=== PATIENT | male | born 1985 | race African-American/Black ===

== ENCOUNTER 2018-07-30 01:29 | Observation (INO) | payer OTHER ==
[~2018-07-30] VITALS: Ht 185.4 cm; Wt 114.3 kg
[~2018-07-30 01:29] MED LIST: ACET325T33 PO; CIPR7.5D BOTH EARS; IBUP800T48 PO; SULF1TAB31 PO
[2018-07-30] MEDS ORDERED: ONDANSETRON 4 MG INJ IV ONE (02:12)
[2018-07-30] MEDS ORDERED: morphine 4 MG/ML VIAL IV ONE (02:12)
--- NOTE | 2018-07-30 04:46 | ERD ---
ER Documentation Chief Complaint Chief Complaint chest pain since yesterday HPI This is a very pleasant 33-year-old gentleman who presents to the emergency room with chest pain. Describes left-sided chest pain that is pressure-like, intermittent with associated numbness and tingling to his left upper extremity. Additionally has some back pain in the middle of his back that is mild that started earlier today. Patient does have a family history of cardiac disease. He denies any exertional symptoms, no pleuritic pain and no significant shortness of breath. The pain is moderate currently. ROS All systems reviewed and are negative except as per history of present illness. Medications Home Meds Discontinued Scripts Ciprofloxacin Hcl/Dexameth (Ciprodex Otic Suspension) 7.5 Ml Drops.susp, 4 DROP BOTH EARS BID for 7 Days, EA Prov:PASILABAN,KLAR F 07/04/17 Ibuprofen* (Motrin*) 800 Mg Tab, 800 MG PO Q6H PRN for PAIN AND OR ELEVATED TEMP, #30 TAB Prov:PASILABAN,KLAR F 07/04/17 Acetaminophen* (Tylenol*) 325 Mg Tablet, 2 TAB PO Q6 PRN for PAIN AND OR ELEVATED TEMP, #20 TAB Prov:PASILABAN,KLAR F 07/04/17 Sulfamethoxazole/Trimethoprim* (Bactrim Ds* Tablet) 1 Each Tablet, 1 TAB PO BID, #14 TAB Prov:PASILABAN,KLAR F 07/04/17 Allergies Allergies: Coded Allergies: No Known Drug Allergies (Verified Allergy, Unknown, 07/30/18) PMhx/Soc Medical and Surgical Hx: pt denies Medical Hx, pt denies Surgical Hx History of Surgery: No Anesthesia Reaction: No Hx Neurological Disorder: No Hx Alcohol Use: No Hx Substance Use: No Hx Tobacco Use: No Smoking Status: Never smoker FmHx Family History: coronary disease; No diabetes Physical Exam Vitals Vital Signs Date Temp Pulse Resp B/P (MAP) Pulse Ox O2 O2 Flow FiO2 Time Delivery Rate 07/30/18 97.8 82 19 135/82 97 Room Air 05:15 (99) 07/30/18 97.8 97 18 137/72 97 Room Air 02:01 (93) 07/30/18 97.8 98 18 156/86 97 01:34 (109) Physical Exam General: Well developed, well nourished, no acute distress Head: Normocephalic, atraumatic. Eyes: Pupils equally reactive, EOM intact ENT: Moist mucous membranes Neck: Supple, no lymphadenopathy Respiratory: Lungs clear bilaterally, no distress Cardiovascular: RRR, no murmurs, rubs, or gallops Abdominal: Soft, non-tender, non-distended, no peritoneal signs : Deferred MSK: No edema, no unilateral swelling, 5/5 strength, no pulse deficits Neurologic: Alert and oriented, moving all extremities, normal speech, no focal weakness, no cerebellar signs Skin: No rash Psych: Normal mood Result Diagram: 07/30/1815707/30/18157 Results 24 hrs Laboratory Tests Test 07/30/18 01:58 White Blood Count 7.3 10^3/ul Red Blood Count 5.25 10^6/ul Hemoglobin 16.0 g/dl Hematocrit 46.6 % Mean Corpuscular Volume 88.8 fl Mean Corpuscular Hemoglobin 30.5 pg Mean Corpuscular Hemoglobin Concent 34.3 g/dl Red Cell Distribution Width 12.8 % Platelet Count 311 10^3/UL Mean Platelet Volume 9.7 fl Immature Granulocytes % 0.300 % Neutrophils % 61.3 % Lymphocytes % 27.5 % Monocytes % 8.4 % Eosinophils % 2.1 % Basophils % 0.4 % Nucleated Red Blood Cells % 0.0 /100WBC Immature Granulocytes # 0.020 10^3/ul Neutrophils # 4.5 10^3/ul Lymphocytes # 2.0 10^3/ul Monocytes # 0.6 10^3/ul Eosinophils # 0.2 10^3/ul Basophils # 0.0 10^3/ul Nucleated Red Blood Cells # 0.0 10^3/ul Prothrombin Time 12.1 Sec Prothrombin Time Ratio 0.9 INR International Normalized Ratio 0.89 Activated Partial Thromboplast Time 28.1 Sec Sodium Level 141 mmol/L Potassium Level 4.1 mmol/L Chloride Level 103 mmol/L Carbon Dioxide Level 25 mmol/L Anion Gap 13 Blood Urea Nitrogen 19 mg/dl Creatinine 0.93 mg/dl Est Glomerular Filtrat Rate mL/min > 60 mL/min Glucose Level 105 mg/dl Calcium Level 9.7 mg/dl Total Bilirubin 0.7 mg/dl Direct Bilirubin 0.00 mg/dl Indirect Bilirubin 0.7 mg/dl Aspartate Amino Transf (AST/SGOT) 39 IU/L Alanine Aminotransferase (ALT/SGPT) 41 IU/L Alkaline Phosphatase 74 IU/L Troponin I < 0.012 ng/ml Total Protein 8.6 g/dl Albumin 4.7 g/dl Globulin 3.90 g/dl Albumin/Globulin Ratio 1.20 Current Medications Medications Dose Sig/Ojao Start Time Status Last (Trade) Ordered Route PRN Stop Time Admin Dose Reason Admin Morphine 4 mg ONCE ONCE 07/30/18 DC 07/30/18 Sulfate IV 02:12 07/30/18 02:40 (morphine) 02:13 Ondansetron 4 mg ONCE ONCE 07/30/18 DC 07/30/18 HCl (Zofran IV 02:12 07/30/18 02:43 Inj) 02:13 Aspirin 324 mg ONCE ONCE 07/30/18 UNV (Aspirin) PO 06:00 07/30/18 06:01 Ondansetron 4 mg ER BRIDGE 07/30/18 HCl (Zofran PRN IV 06:00 07/31/18 Inj) NAUSEA/VOMITI 05:59 NG 650 mg ER BRIDGE 07/30/18 Acetaminophen PRN PO 06:00 07/31/18 (Tylenol .MILD PAIN 05:59 Tab) 1-3 OR TEMP Procedures/MDM EKG, MONITORS, & DIAGNOSTIC IMAGING: EKG: I reviewed and interpreted a 12-lead EKG. Rhythm: Normal sinus rhythm ST Changes: ST segment depression in the inferior leads T waves: TWI deep in inferior leads Impression: Abnormal EKG Repeat EKG: EKG: I reviewed and interpreted a 12-lead EKG. Rhythm: Normal sinus rhythm ST Changes: ST segment depression in the inferior leads T waves: TWI deep in inferior leads Impression: Abnormal EKG Chest x-ray: I reviewed and interpreted a 1 view of the chest Mediastinum: No enlargement Cardiac silhouette: No cardiomegaly Airspace: Clear lung coello bilaterally without evidence of pneumothorax Bones: No evidence of fracture CTA IMPRESSION: 1. No evidence of a pulmonary embolism or thoracic aortic dissection. 2. Moderate retained fluid and debris in the stomach. RPTAT: HRSR PROCEDURES: None LAB INTERPRETATION: Negative troponin MEDICAL DECISION MAKING: The patient's history, physical exam and clinical presentation is concerning for possible cardiogenic etiology and acute coronary syndrome. Based on the patient's clinical exam and history and risk factors, I have a much lower clinical concern for pulmonary embolism, acute aortic dissection, pneumothorax, pneumonia, cardiac tamponade HEART Score: 4 MACE Rate: 16.6% Shared Decision Making: We had a conversation regarding risk stratification, MACE rate, and the risks, benefits, alternatives of disposition planning options. Disposition planning: Admit ER COURSE: * CT of the chest obtained to rule out dissection given back component. Negative. Aspirin provided. Chest pain improved. Given the patient's abnormal EKG I would recommend hospitalization. Patient agreeable. CONSULTATION: None DISPOSITION PLAN: My telemetry admit telemetry admission for management of chest pain to rule out acute coronary syndrome, serial enzymes, risk stratification and consideration of provocative testing CONSULTATION: Accepting care team and consultations: I discussed the current laboratory data, diagnostic imaging and emergency care provided. Admitting team: Dr. Arnold Admitting team indication: Insurance directed Departure Diagnosis: Primary Impression: Chest pain Chest pain type: unspecified Qualified Codes: R07.9 - Chest pain, unspecified Additional Impression: Abnormal EKG Condition: Stable JACQUE CHACON MD Jul 30, 2018 04:46
[2018-07-30] MEDS ORDERED: ASPIRIN 81 MG TAB PO ONE (06:00)
[2018-07-30] MEDS ORDERED: ACETAMINOPHEN 325 MG TAB PO PRN ×2 (06:00→06:30)
[2018-07-30] MEDS ORDERED: ONDANSETRON 4 MG INJ IV PRN ×2 (06:00→06:30)
[2018-07-30] MEDS ORDERED: SOD CHLORIDE 0.45% 1,000 ML IV SCH (06:06)
[2018-07-30] MEDS ORDERED: SOD CHLORIDE 0.9% 100 ML ONE (06:06)
[2018-07-30] MEDS ORDERED: IOHEXOL 300MG/ML 150 ML BTL ONE (06:06)
[2018-07-30] MEDS ORDERED: hydrALAzine 20 MG INJ IV PRN (06:30)
[2018-07-30] MEDS ORDERED: morphine 2 MG INJ IV PRN (06:30)
[2018-07-30] MEDS ORDERED: HYDROCODONE/APAP (5/325) TAB PO PRN (06:30)
[2018-07-30] MEDS ORDERED: DOCUSATE SODIUM 100 MG CAP PO PRN (06:30)
[2018-07-30] MEDS ORDERED: LORAZEPAM 2 MG INJ IV PRN (06:30)
[2018-07-30] MEDS ORDERED: NACL 0.9% 3 ML SYG IV SCH (06:30)
[2018-07-30] MEDS ORDERED: ALBUTEROL/IPRATROPIUM (NEB) 3 ML AMP HHN PRN (06:30)
[2018-07-30] MEDS ORDERED: NITROGLYCERIN (SL) 0.4 MG TAB SL PRN (06:30)
[2018-07-30] MEDS ORDERED: MAGNESIUM HYDROXIDE 30ML CUP PO PRN (06:30)
--- NOTE | 2018-07-30 06:33 | HP ---
Date/Time of Note Date/Time of Note DATE: 07/30/18 TIME: 06:33 Assessment/Plan VTE Prophylaxis SCD applied (from Nsg): No SCD contraindicated: other Pharmacological prophylaxis: heparin Assessment/Plan Hospital Course Assessment and plan: 33-year-old gentleman with no significant past medical history who presents to the emergency room with chest pain with positive family history of heart disease. 1. Chest pain: Again rule out ACS versus musculoskeletal source of pain -We will trend troponins every 6 hours x2 more the first troponin is been negative. -Given the positive family history of heart disease and possible EKG changes will go ahead and obtain cardiology consult check 2D echocardiogram -Continue aspirin, morphine, oxygen, nitroglycerin, follow-up TSH A1c lipid panel 2. DVT prophylaxis: Heparin subcu Result Diagram: 07/30/18 0158 07/30/18 0158 Results 24hrs Laboratory Tests Test 07/30/18 01:58 White Blood Count 7.3 Red Blood Count 5.25 Hemoglobin 16.0 Hematocrit 46.6 Mean Corpuscular Volume 88.8 Mean Corpuscular Hemoglobin 30.5 Mean Corpuscular Hemoglobin Concent 34.3 Red Cell Distribution Width 12.8 Platelet Count 311 Mean Platelet Volume 9.7 Immature Granulocytes % 0.300 Neutrophils % 61.3 Lymphocytes % 27.5 Monocytes % 8.4 Eosinophils % 2.1 Basophils % 0.4 Nucleated Red Blood Cells % 0.0 Immature Granulocytes # 0.020 Neutrophils # 4.5 Lymphocytes # 2.0 Monocytes # 0.6 Eosinophils # 0.2 Basophils # 0.0 Nucleated Red Blood Cells # 0.0 Prothrombin Time 12.1 Prothrombin Time Ratio 0.9 INR International Normalized Ratio 0.89 Activated Partial Thromboplast Time 28.1 Sodium Level 141 Potassium Level 4.1 Chloride Level 103 Carbon Dioxide Level 25 Anion Gap 13 Blood Urea Nitrogen 19 Creatinine 0.93 Est Glomerular Filtrat Rate mL/min > 60 Glucose Level 105 Calcium Level 9.7 Total Bilirubin 0.7 Direct Bilirubin 0.00 Indirect Bilirubin 0.7 Aspartate Amino Transf (AST/SGOT) 39 Alanine Aminotransferase (ALT/SGPT) 41 Alkaline Phosphatase 74 Troponin I < 0.012 Total Protein 8.6 H Albumin 4.7 Globulin 3.90 H Albumin/Globulin Ratio 1.20 HPI/ROS Admit Date/Time Admit Date/Time Hx of Present Illness 33-year-old gentleman with no significant past medical history who presents to the emergency room with chest pain. Patient described the pain as left-sided chest pain that is pressure-like, intermittent with associated numbness and tingling to his left upper extremity. Additionally has some back pain in the middle of his back that is mild that started earlier today. Patient had some nausea and dizziness symptoms but no loss of consciousness no upper or lower GI bleeding, diarrhea constipation, fever chills, no shortness of breath. Patient does have a family history of cardiac disease. PMH/Family/Social Past Medical History Medications Current Medications Ondansetron HCl (Zofran Inj) 4 mg ER BRIDGE PRN IV NAUSEA/VOMITING; Start 07/30/18 at 06:00; Stop 07/31/18 at 05:59 Acetaminophen (Tylenol Tab) 650 mg ER BRIDGE PRN PO .MILD PAIN 1-3 OR TEMP; Start 07/30/18 at 06:00; Stop 07/31/18 at 05:59 IV Flush (NS 3 ml) 3 ml PER PROTOCOL IV ; Start 07/30/18 at 06:30 Ondansetron HCl (Zofran Inj) 4 mg Q6H PRN IV NAUSEA/VOMITING; Start 07/30/18 at 06:30 Acetaminophen (Tylenol Tab) 650 mg Q6H PRN PO .PAIN 1-3 OR TEMP; Start 07/30/18 at 06:30 Acetaminophen/ Hydrocodone Bitart ([place] (5/325)) 1 tab Q6H PRN PO .MOD PAIN 4- 6; Start 07/30/18 at 06:30 Morphine Sulfate (morphine) 2 mg Q4H PRN IV .SEVERE PAIN 7-10; Start 07/30/18 at 06:30 Docusate Sodium (Colace) 100 mg Q12H PRN PO .CONSTIPATION; Start 07/30/18 at 06:30 Magnesium Hydroxide (Milk Of Mag) 30 ml DAILY PRN PO .CONSTIPATION; Start 07/30/18 at 06:30 Heparin Sodium (Porcine) (Heparin (5000 Units/1ml)) 5,000 unit Q12 SC ; Start 07/30/18 at 09:00 Sodium Chloride 1,000 ml @ 75 mls/hr [id number] IV ; Start 07/30/18 at 06:06 Lorazepam (Ativan) 0.5 mg Q6H PRN IV ANXIETY; Start 07/30/18 at 06:30 Albuterol/ Ipratropium (Duoneb) 3 ml Q4H RESP THERAPY PRN HHN SHORTNESS OF ROXANA TH; Start 07/30/18 at 06:30 Hydralazine HCl (Apresoline) 10 mg Q6H PRN IV ELEVATED BLOOD PRESSURE; Start 07/30/18 at 06:30 Clonidine (Catapres) 0.1 mg Q6H PRN PO ELEVATED BLOOD PRESSURE; Start 07/30/18 at 06:30 Nitroglycerin (Nitroglycerin (Sl Tab) 0.4 Mg) 1 tab Q5M PRN SL ANGINA; Start 07/30/18 at 06:30 Aspirin (Ecotrin) 325 mg DAILY PO ; Start 07/30/18 at 09:00 Coded Allergies: No Known Drug Allergies (Verified Allergy, Unknown, 07/30/18) Past Surgical History Past Surgical Hx: no surgical history Family History Significant Family History: other (Father has pacemaker and possible heart disease) Social History Alcohol Use: none Smoking Status: Never smoker Drug Use: none Exam/Review of Systems Vital Signs Vitals Vital Signs Date Temp Pulse Resp B/P (MAP) Pulse Ox O2 O2 Flow FiO2 Time Delivery Rate 07/30/18 88 14 128/77 100 Nasal 06:27 (94) Cannula 07/30/18 97.8 05:15 Exam Exam GENERAL: lying in bed, no acute distress HEENT: Pupils equal, round, and reactive to light. EOMI. NECK: Supple LUNGS: Clear to auscultation bilaterally, no rales, wheezes or rhonchi. HEART: Regular rate and rhythm, no murmurs, clicks, rubs or gallops. ABDOMEN: Soft, NT, non-distended. Positive bowel sounds in all four quadrants. No rebound or guarding. EXTREMITIES: No lower extremity edema bilaterally NEURO: No focal deficits ADELAIDE SMALL Jul 30, 2018 06:33
--- NOTE | 2018-07-30 07:51 | CONS ---
Assessment/Plan Assessment/Plan Hospital Course (Demo Recall) Chest pain/dizziness/EKG abnormality: Based on EKG and family history (though father denies HCM, he had likely frequent PVCs from either HCM or dilated cardiomyopathy and received an ICD) I suspect he may have hypertrophic cardiomyopathy. Highly doubt obstructive CAD. Probably mostly non-obstructive as he has been active and asymptomatic with heavy exertion and he does not have a murmur with valsalva. Alternately he may have dilated cardiomyopathy which I doubt based on normal heart size by CXR. -echo -trend trops -continue ASA for now until more information is obtained -start metoprolol succ 25mg daily Consultation Date/Type/Reason Admit Date/Time Date of Consultation: Jul 30, 2018 Type of Consult Cardiology Reason for Consultation Chest pain, abnormal EKG Requesting Provider: ADELAIDE SMALL Date/Time of Note DATE: 07/30/18 TIME: 07:41 Hx of Present Illness 33 yo M with no past medical history who presented with dizziness, back/chest pain. He was at work when he started to feel chest pressure, left arm numbness, mid back pain, and dizziness. He has not had this before so it concerned him. No prior similar episodes. No syncope. He was active in the past including playing basketball and wrestling without any symptoms including chest pain or dizziness. His father has a heart condition. He lives in the [facility] and I was able to speak with him. He had an ICD placed recently for "8000 extra heart beats" but he does not think he has HCM. The father's brother has an enlarged heart and needs a valve procedure and possible ICD as well. per hPI Past Medical History per HPI Home Meds Discontinued Scripts Ciprofloxacin Hcl/Dexameth (Ciprodex Otic Suspension) 7.5 Ml Drops.susp, 4 DROP BOTH EARS BID for 7 Days, EA Prov:PASILABAN,KLAR F 07/04/17 Ibuprofen* (Motrin*) 800 Mg Tab, 800 MG PO Q6H PRN for PAIN AND OR ELEVATED TEMP, #30 TAB Prov:PASILABAN,KLAR F 07/04/17 Acetaminophen* (Tylenol*) 325 Mg Tablet, 2 TAB PO Q6 PRN for PAIN AND OR ELEVATED TEMP, #20 TAB Prov:PASILABAN,KLAR F 07/04/17 Sulfamethoxazole/Trimethoprim* (Bactrim Ds* Tablet) 1 Each Tablet, 1 TAB PO BID, #14 TAB Prov:ELMIRA BARRERA 07/04/17 Medications Current Medications Ondansetron HCl (Zofran Inj) 4 mg ER BRIDGE PRN IV NAUSEA/VOMITING; Start 07/30/18 at 06:00; Stop 07/31/18 at 05:59 Acetaminophen (Tylenol Tab) 650 mg ER BRIDGE PRN PO .MILD PAIN 1-3 OR TEMP; Start 07/30/18 at 06:00; Stop 07/31/18 at 05:59 IV Flush (NS 3 ml) 3 ml PER PROTOCOL IV ; Start 07/30/18 at 06:30 Ondansetron HCl (Zofran Inj) 4 mg Q6H PRN IV NAUSEA/VOMITING; Start 07/30/18 at 06:30 Acetaminophen (Tylenol Tab) 650 mg Q6H PRN PO .PAIN 1-3 OR TEMP; Start 07/30/18 at 06:30 Acetaminophen/ Hydrocodone Bitart ([place] (5/325)) 1 tab Q6H PRN PO .MOD PAIN 4- 6; Start 07/30/18 at 06:30 Morphine Sulfate (morphine) 2 mg Q4H PRN IV .SEVERE PAIN 7-10; Start 07/30/18 at 06:30 Docusate Sodium (Colace) 100 mg Q12H PRN PO .CONSTIPATION; Start 07/30/18 at 06:30 Magnesium Hydroxide (Milk Of Mag) 30 ml DAILY PRN PO .CONSTIPATION; Start 07/30/18 at 06:30 Heparin Sodium (Porcine) (Heparin (5000 Units/1ml)) 5,000 unit Q12 SC ; Start 07/30/18 at 09:00 Sodium Chloride 1,000 ml @ 75 mls/hr [id number] IV ; Start 07/30/18 at 06:06 Lorazepam (Ativan) 0.5 mg Q6H PRN IV ANXIETY; Start 07/30/18 at 06:30 Albuterol/ Ipratropium (Duoneb) 3 ml Q4H RESP THERAPY PRN HHN SHORTNESS OF BREATH; Start 07/30/18 at 06:30 Hydralazine HCl (Apresoline) 10 mg Q6H PRN IV ELEVATED BLOOD PRESSURE; Start 07/30/18 at 06:30 Clonidine (Catapres) 0.1 mg Q6H PRN PO ELEVATED BLOOD PRESSURE; Start 07/30/18 at 06:30 Nitroglycerin (Nitroglycerin (Sl Tab) 0.4 Mg) 1 tab Q5M PRN SL ANGINA; Start 07/30/18 at 06:30 Aspirin (Ecotrin) 325 mg DAILY PO ; Start 07/30/18 at 09:00 Allergies: Coded Allergies: No Known Drug Allergies (Verified Allergy, Unknown, 07/30/18) Past Surgical History Past Surgical Hx: no surgical history Social History Alcohol Use: none Smoking Status: Never smoker Drug Use: none Exam/Review of Systems Vital Signs Vitals Vital Signs Date Temp Pulse Resp B/P (MAP) Pulse Ox O2 O2 Flow FiO2 Time Delivery Rate 07/30/18 81 16 120/80 100 Nasal 2.0 07:20 (93) Cannula 07/30/18 97.8 05:15 Exam Constitutional: alert, oriented Psych: no complaints, nl mood/affect Head: normocephalic, atraumatic Neck: supple; No jvd Respiratory: clear to auscultation; No crackles/rales Cardiovascular: regular rate and rhythm; No edema, No systolic murmur Gastrointestinal: soft, non-tender; No distended Neurological: nl mental status, nl speech Labs Result Diagram: 07/30/188 07/30/18 0158 Results 24hrs Laboratory Tests Test 07/30/18 01:58 White Blood Count 7.3 Red Blood Count 5.25 Hemoglobin 16.0 Hematocrit 46.6 Mean Corpuscular Volume 88.8 Mean Corpuscular Hemoglobin 30.5 Mean Corpuscular Hemoglobin Concent 34.3 Red Cell Distribution Width 12.8 Platelet Count 311 Mean Platelet Volume 9.7 Immature Granulocytes % 0.300 Neutrophils % 61.3 Lymphocytes % 27.5 Monocytes % 8.4 Eosinophils % 2.1 Basophils % 0.4 Nucleated Red Blood Cells % 0.0 Immature Granulocytes # 0.020 Neutrophils # 4.5 Lymphocytes # 2.0 Monocytes # 0.6 Eosinophils # 0.2 Basophils # 0.0 Nucleated Red Blood Cells # 0.0 Prothrombin Time 12.1 Prothrombin Time Ratio 0.9 INR International Normalized Ratio 0.89 Activated Partial Thromboplast Time 28.1 Sodium Level 141 Potassium Level 4.1 Chloride Level 103 Carbon Dioxide Level 25 Anion Gap 13 Blood Urea Nitrogen 19 Creatinine 0.93 Est Glomerular Filtrat Rate mL/min > 60 Glucose Level 105 Calcium Level 9.7 Total Bilirubin 0.7 Direct Bilirubin 0.00 Indirect Bilirubin 0.7 Aspartate Amino Transf (AST/SGOT) 39 Alanine Aminotransferase (ALT/SGPT) 41 Alkaline Phosphatase 74 Troponin I < 0.012 Total Protein 8.6 H Albumin 4.7 Globulin 3.90 H Albumin/Globulin Ratio 1.20 Free Thyroxine 0.78 L Imaging Imaging EKG: deep inferior TWI, anterolateral mild TWI. No ST changes Medications Medications Current Medications Ondansetron HCl (Zofran Inj) 4 mg ER BRIDGE PRN IV NAUSEA/VOMITING; Start 07/30/18 at 06:00; Stop 07/31/18 at 05:59 Acetaminophen (Tylenol Tab) 650 mg ER BRIDGE PRN PO .MILD PAIN 1-3 OR TEMP; Start 07/30/18 at 06:00; Stop 07/31/18 at 05:59 IV Flush (NS 3 ml) 3 ml PER PROTOCOL IV ; Start 07/30/18 at 06:30 Ondansetron HCl (Zofran Inj) 4 mg Q6H PRN IV NAUSEA/VOMITING; Start 07/30/18 at 06:30 Acetaminophen (Tylenol Tab) 650 mg Q6H PRN PO .PAIN 1-3 OR TEMP; Start 07/30/18 at 06:30 Acetaminophen/ Hydrocodone Bitart ([place] (5/325)) 1 tab Q6H PRN PO .MOD PAIN 4- 6; Start 07/30/18 at 06:30 Morphine Sulfate (morphine) 2 mg Q4H PRN IV .SEVERE PAIN 7-10; Start 07/30/18 at 06:30 Docusate Sodium (Colace) 100 mg Q12H PRN PO .CONSTIPATION; Start 07/30/18 at 06:30 Magnesium Hydroxide (Milk Of Mag) 30 ml DAILY PRN PO .CONSTIPATION; Start 07/30/18 at 06:30 Heparin Sodium (Porcine) (Heparin (5000 Units/1ml)) 5,000 unit Q12 SC ; Start 07/30/18 at 09:00 Sodium Chloride 1,000 ml @ 75 mls/hr [id number] IV ; Start 07/30/18 at 06:06 Lorazepam (Ativan) 0.5 mg Q6H PRN IV ANXIETY; Start 07/30/18 at 06:30 Albuterol/ Ipratropium (Duoneb) 3 ml Q4H RESP THERAPY PRN HHN SHORTNESS OF BREATH; Start 07/30/18 at 06:30 Hydralazine HCl (Apresoline) 10 mg Q6H PRN IV ELEVATED BLOOD PRESSURE; Start 07/30/18 at 06:30 Clonidine (Catapres) 0.1 mg Q6H PRN PO ELEVATED BLOOD PRESSURE; Start 07/30/18 at 06:30 Nitroglycerin (Nitroglycerin (Sl Tab) 0.4 Mg) 1 tab Q5M PRN SL ANGINA; Start 07/30/18 at 06:30 Aspirin (Ecotrin) 325 mg DAILY PO ; Start 07/30/18 at 09:00 JESS BEY Jul 30, 2018 07:51
[2018-07-30 07:52] VITALS: BP 125/66; PULSE 80; RESP 18
[2018-07-30 08:00] VITALS: Ht 185.4 cm; Wt 114.3 kg
[2018-07-30] MEDS ORDERED: ASPIRIN (EC) 325 MG TAB PO SCH (09:00)
[2018-07-30] MEDS ORDERED: METOPROLOL (XL) 25 MG TAB PO SCH (09:00)
[2018-07-30] MEDS ORDERED: HEPARIN 5,000 UNIT/1 ML VIAL SC SCH (09:00)
--- NOTE | 2018-07-30 10:13 | PN ---
Date/Time of Note Date/Time of Note DATE: 07/30/18 TIME: 10:04 Assessment/Plan VTE Prophylaxis SCD applied (from Ns): No SCD contraindicated: low risk/ambulating Pharmacological prophylaxis: NA/contraindicated Pharm contraindication: low risk/ambulating Assessment/Plan Hospital Course S: Feels better, no more dizziness, no more chest pain, wants to leave the hospital AGAINST MEDICAL ADVICE O: General: A&O x3, answering questions appropriately HEENT: NC/ AT. PERRL. EOM intact Neck: supple CVS: S1, S2, RRR. no murmurs. no pain on chest wall palpation Lungs: CTA b/l. no wheezing or rhonchi Abd: soft, nontender, +BS Ext: moving all extremities skin: no rashes assessment and plan: 33-year-old gentleman with no significant past medical history who presents to the emergency room with chest pain with positive family history of heart disease. 1. Chest pain: -CT angiogram showed retained fluid and debris within the stomach, this is likely the source of his pain. Looks like there is a component of gastroparesis, no obvious cause at this time. Will get GI consultation, patient may benefit from EGD, start patient on Reglan and PPI as well as regular stool softeners. -We will also get a CT of the abdomen and pelvis for complete work-up. 2. DVT prophylaxis: Heparin subcu Result Diagram: 07/30/18 0158 07/30/18 0158 Results 24hrs Laboratory Tests Test 07/30/18 01:58 07/30/18 09:13 White Blood Count 7.3 Red Blood Count 5.25 Hemoglobin 16.0 Hematocrit 46.6 Mean Corpuscular Volume 88.8 Mean Corpuscular Hemoglobin 30.5 Mean Corpuscular Hemoglobin Concent 34.3 Red Cell Distribution Width 12.8 Platelet Count 311 Mean Platelet Volume 9.7 Immature Granulocytes % 0.300 Neutrophils % 61.3 Lymphocytes % 27.5 Monocytes % 8.4 Eosinophils % 2.1 Basophils % 0.4 Nucleated Red Blood Cells % 0.0 Immature Granulocytes # 0.020 Neutrophils # 4.5 Lymphocytes # 2.0 Monocytes # 0.6 Eosinophils # 0.2 Basophils # 0.0 Nucleated Red Blood Cells # 0.0 Prothrombin Time 12.1 Prothrombin Time Ratio 0.9 INR International Normalized Ratio 0.89 Activated Partial Thromboplast Time 28.1 Sodium Level 141 Potassium Level 4.1 Chloride Level 103 Carbon Dioxide Level 25 Anion Gap 13 Blood Urea Nitrogen 19 Creatinine 0.93 Est Glomerular Filtrat Rate mL/min > 60 Glucose Level 105 Calcium Level 9.7 Total Bilirubin 0.7 Direct Bilirubin 0.00 Indirect Bilirubin 0.7 Aspartate Amino Transf (AST/SGOT) 39 Alanine Aminotransferase (ALT/SGPT) 41 Alkaline Phosphatase 74 Troponin I < 0.012 < 0.012 Total Protein 8.6 H Albumin 4.7 Globulin 3.90 H Albumin/Globulin Ratio 1.20 Free Thyroxine 0.78 L Creatine Kinase 498 H Creatine Kinase Index 0.6 Creatinine Kinase MB (Mass) 2.76 H Exam/Review of Systems Exam Vitals Vital Signs Date Temp Pulse Resp B/P (MAP) Pulse Ox O2 O2 Flow FiO2 Time Delivery Rate 07/30/18 97.9 80 18 125/66 98 Room Air 07:52 (85) 07/30/18 2.0 07:20 Results Results 24hrs Laboratory Tests Test 07/30/18 01:58 07/30/18 09:13 White Blood Count 7.3 Red Blood Count 5.25 Hemoglobin 16.0 Hematocrit 46.6 Mean Corpuscular Volume 88.8 Mean Corpuscular Hemoglobin 30.5 Mean Corpuscular Hemoglobin Concent 34.3 Red Cell Distribution Width 12.8 Platelet Count 311 Mean Platelet Volume 9.7 Immature Granulocytes % 0.300 Neutrophils % 61.3 Lymphocytes % 27.5 Monocytes % 8.4 Eosinophils % 2.1 Basophils % 0.4 Nucleated Red Blood Cells % 0.0 Immature Granulocytes # 0.020 Neutrophils # 4.5 Lymphocytes # 2.0 Monocytes # 0.6 Eosinophils # 0.2 Basophils # 0.0 Nucleated Red Blood Cells # 0.0 Prothrombin Time 12.1 Prothrombin Time Ratio 0.9 INR International Normalized Ratio 0.89 Activated Partial Thromboplast Time 28.1 Sodium Level 141 Potassium Level 4.1 Chloride Level 103 Carbon Dioxide Level 25 Anion Gap 13 Blood Urea Nitrogen 19 Creatinine 0.93 Est Glomerular Filtrat Rate mL/min > 60 Glucose Level 105 Calcium Level 9.7 Total Bilirubin 0.7 Direct Bilirubin 0.00 Indirect Bilirubin 0.7 Aspartate Amino Transf (AST/SGOT) 39 Alanine Aminotransferase (ALT/SGPT) 41 Alkaline Phosphatase 74 Troponin I < 0.012 < 0.012 Total Protein 8.6 H Albumin 4.7 Globulin 3.90 H Albumin/Globulin Ratio 1.20 Free Thyroxine 0.78 L Creatine Kinase 498 H Creatine Kinase Index 0.6 Creatinine Kinase MB (Mass) 2.76 H Medications Medication Current Medications IV Flush (NS 3 ml) 3 ml PER PROTOCOL IV ; Start 07/30/18 at 06:30 Ondansetron HCl (Zofran Inj) 4 mg Q6H PRN IV NAUSEA/VOMITING; Start 07/30/18 at 06:30 Acetaminophen (Tylenol Tab) 650 mg Q6H PRN PO .PAIN 1-3 OR TEMP; Start 07/30/18 at 06:30 Acetaminophen/ Hydrocodone Bitart ([place] (5/325)) 1 tab Q6H PRN PO .MOD PAIN 4- 6; Start 07/30/18 at 06:30 Morphine Sulfate (morphine) 2 mg Q4H PRN IV .SEVERE PAIN 7-10; Start 07/30/18 at 06:30 Docusate Sodium (Colace) 100 mg Q12H PRN PO .CONSTIPATION; Start 07/30/18 at 06:30 Magnesium Hydroxide (Milk Of Mag) 30 ml DAILY PRN PO .CONSTIPATION; Start 07/30/18 at 06:30 Heparin Sodium (Porcine) (Heparin (5000 Units/1ml)) 5,000 unit Q12 SC Last administered on 07/30/18at 08:43; Admin Dose 5,000 UNIT; Start 07/30/18 at 09:00 Sodium Chloride 1,000 ml @ 75 mls/hr [id number] IV ; Start 07/30/18 at 06:06 Lorazepam (Ativan) 0.5 mg Q6H PRN IV ANXIETY; Start 07/30/18 at 06:30 Albuterol/ Ipratropium (Duoneb) 3 ml Q4H RESP THERAPY PRN HHN SHORTNESS OF BREATH; Start 07/30/18 at 06:30 Hydralazine HCl (Apresoline) 10 mg Q6H PRN IV ELEVATED BLOOD PRESSURE; Start 07/30/18 at 06:30 Clonidine (Catapres) 0.1 mg Q6H PRN PO ELEVATED BLOOD PRESSURE; Start 07/30/18 at 06:30 Nitroglycerin (Nitroglycerin (Sl Tab) 0.4 Mg) 1 tab Q5M PRN SL ANGINA; Start 07/30/18 at 06:30 Aspirin (Ecotrin) 325 mg DAILY PO Last administered on 07/30/18at 08:41; Admin Dose 325 MG; Start 07/30/18 at 09:00 Metoprolol Succinate (Toprol Xl) 25 mg DAILY PO Last administered on 07/30/18at 08:41; Admin Dose 25 MG; Start 07/30/18 at 09:00 DAVID CACERES Jul 30, 2018 10:13
[2018-07-30] MEDS ORDERED: IOHEXOL 14.3 MG(I)/ML (ADULT) BTL PO ONE (10:30)
[2018-07-30] MEDS ORDERED: PANTOPRAZOLE (EC) 40 MG TAB PO SCH (11:00)
--- NOTE | 2018-07-30 11:12 | RADRPT ---
Echocardiogram Report Patient Name: ÁLVARO ARCHERPatient ID: [id number] : 1985 (33y 1m)Study Date: 07/30/2018 9:24:21 AM Gender: Jennifercession #: [id number] Tech: John Cortez [facility] Location: [facility] Ref.Physician: ADELAIDE SMALL Height(Cm): BSA: Weight(Kg): Quality: AdequateOrder Physician: ADELAIDE SMALL Account #: Procedures: Echocardiographic Report: Transthoracic echocardiogram with complete 2D, M-Mode, and doppler examination. Indications: Chest Pain. Measurements: 2D/M Mode Doppler Measurement Value Normal Range Measurement Value Normal Range LVIDd 2D 4.9 [ 4.2 - 5.8 ] cm AV Peak Zheng 1.2 [ 100.0 - 170.0 ] cm/sec LVIDs 2D 3.1 [ 2.5 - 4.0 ] cm AV Peak PG 6.0 [ 2.0 - 9.0 ] mmHg LVPWd 2D 1.1 [ 0.6 - 1.0 ] cm LVOT Peak Zheng 1.0 [ 70.0 - 110.0 ] cm/sec IVSd 2D 1.1 [ 0.6 - 1.0 ] cm LVOT Peak PG 4.0 [ 2.0 - 6.0 ] mmHg AoR Diam 2D 2.7 [ 2.6 - 3.4 ] cm MV E Peak Zheng 0.7 [ 60.0 - 130.0 ] cm/sec EDV 2D 114.0 [ 62.0 - 150.0 ] ml MV A Peak Zheng 0.5 [ 100.0 - 120.0 ] cm/sec ESV 2D 39.1 [ 21.0 - 61.0 ] ml MV E/A 1.3 [ 0.8 - 1.5 ] ratio EF 2D 65.7 [ 52.0 - 72.0 ] percent MV Decel Time 187 [ 104 - 258 ] msec LA Dimen 2D 3.3 [ 3.0 - 4.0 ] cm Lat E` Zheng 0.1 [ 10.0 - 15.0 ] cm/sec Lateral E/E` 5.3 [ 1.0 - 2.0 ] ratio MV E/A 1.3 [ 0.8 - 1.5 ] ratio TR Peak Zheng 2.2 [ 100.0 - 280.0 ] cm/sec TR Peak PG 20.0 mmHg RVSP 23.0 [ 10.0 - 36.0 ] mmHg Findings: Left Ventricle: Normal left ventricular systolic function. Normal left ventricular cavity size. Normal left ventricular wall thickness. Ejection fraction is visually estimated at 65 %. Tissue Doppler/Mitral Doppler indices are within normal limits. Right Ventricle: Normal right ventricular size. Normal right ventricular systolic function. Left Atrium: The left atrium is normal in size. Right Atrium: The right atrium is normal in size. Mitral Valve: Normal appearance of the mitral valve. Normal appearance and function of the mitral valve with trace physiologic regurgitation. Aortic Valve: Normal appearance of the aortic valve. No significant aortic stenosis or insufficiency. Tricuspid Valve: Normal appearance of the tricuspid valve. The estimated Peak RVSP is 23 mmHg. There is trace tricuspid regurgitation. Pericardium: Normal pericardium with no significant pericardial effusion. Aorta: Normal aortic root. IVC: Normal size and normal respiratory collapse consistent with normal right atrial pressure. Conclusions: Normal left ventricular systolic function. Normal left ventricular cavity size. Normal left ventricular wall thickness. Ejection fraction is visually estimated at 65 %. Tissue Doppler/Mitral Doppler indices are within normal limits. No significant valvular stenosis or regurgitation seen. The estimated Peak RVSP is 23 mmHg. Normal size and normal respiratory collapse consistent with normal right atrial pressure. Electronically Signed By: Anson Dawson 2018-07-30 11:12:45 PDT
[2018-07-30 11:19] VITALS: BP 122/79; PULSE 83; RESP 18
[2018-07-30] MEDS ORDERED: METOCLOPRAMIDE 10 MG INJ IV SCH (12:00)
--- NOTE | 2018-07-30 12:49 | DS ---
Date/Time of Note Date/Time of Note DATE: 07/30/18 TIME: 12:46 Discharge Summary Admission/Discharge Info Admit Date/Time Jul 30, 2018 at 05:56 Discharge Date/Time Jul 30, 2018 at 12:00 Discharge Diagnosis Chest pain/dizziness/EKG abnormality . Patient Condition: Stable Consults Cardiology: kevin Villagranpatrick . \ Hospital Course 33-year-old gentleman with no significant past medical history who presents to the emergency room with chest pain with positive family history of heart disease. He was admitted and ruled out for an acute coronary syndrome. ED 2D echo also did not show evidence of hypertrophic obstructive cardiomyopathy. -CT angiogram showed retained fluid and debris within the stomach, this is likely the source of his pain. Looks like there is a component of gastroparesis, no obvious cause at this time. Will get GI consultation, patient may benefit from EGD, start patient on Reglan and PPI as well as regular stool softeners. -We will also get a CT of the abdomen and pelvis for complete work-up. Patient chose to leave the hospital AGAINST MEDICAL ADVICE at his own insistence and and despite counseling against that. I also ask if there is anything I could do to encourage him to stay and complete his work-up and he declined. Medical risks/benefits were explained to him by members of medical staff and he verbalized understanding to those risks. Risks included additional pain and suffering, permanent disability or disfigurement, and even . He also understood that he was eligible the patient received no prescriptions, for further medical benefits including additional testing and treatments as well as radiologic imaging and medications. He also understood that he was able to return at any time for further testing and management if he so chooses. He verbalized understanding to all this. I did recommend that he follow-up with a primary care doctor as soon as possible as well as possible cardiology and gastroenterology. He verbalized understanding. . Home Meds Discontinued Scripts Ciprofloxacin Hcl/Dexameth (Ciprodex Otic Suspension) 7.5 Ml Drops.susp, 4 DROP BOTH EARS BID for 7 Days, EA Prov:PASILABAN,KLAR F 07/04/17 Ibuprofen* (Motrin*) 800 Mg Tab, 800 MG PO Q6H PRN for PAIN AND OR ELEVATED TEMP, #30 TAB Prov:PASILABAN,KLAR F 07/04/17 Acetaminophen* (Tylenol*) 325 Mg Tablet, 2 TAB PO Q6 PRN for PAIN AND OR ELEVATED TEMP, #20 TAB Prov:ELMIRA BARRERA 07/04/17 Sulfamethoxazole/Trimethoprim* (Bactrim Ds* Tablet) 1 Each Tablet, 1 TAB PO BID, #14 TAB Prov:ELMIRA BARRERA F 07/04/17 Follow-up Plan Patient encouraged to follow-up with outpatient PCP for GI as well as cardiology referral. . Primary Care Provider Care Physician No Primary Time spent on discharge: > 30 minutes Pending Labs Laboratory Tests Test 07/30/18 01:58 07/30/18 09:13 White Blood Count 7.3 10^3/ul (4.8-10.8) Red Blood Count 5.25 10^6/ul (4.70-6.10) Hemoglobin 16.0 g/dl (14.0-18.0) Hematocrit 46.6 % (42.0-52.0) Mean Corpuscular Volume 88.8 fl (82.0-101.0) Mean Corpuscular 30.5 pg (29.0-33.0) Hemoglobin Mean Corpuscular 34.3 g/dl (32.0-37.0) Hemoglobin Concent Red Cell Distribution 12.8 % (11.5-14.5) Width Platelet Count 311 10^3/UL (140-415) Mean Platelet Volume 9.7 fl (7.4-10.4) Immature Granulocytes % 0.300 % (0.001-0.429) Neutrophils % 61.3 % (39.0-77.0) Lymphocytes % 27.5 % (15.0-51.0) Monocytes % 8.4 % (0.0-11.0) Eosinophils % 2.1 % (0.0-7.0) Basophils % 0.4 % (0.0-2.0) Nucleated Red Blood Cells 0.0 /100WBC (0.0-0.0) % Immature Granulocytes # 0.020 10^3/ul (0.0-0.031) Neutrophils # 4.5 10^3/ul (1.6-7.5) Lymphocytes # 2.0 10^3/ul (0.8-2.9) Monocytes # 0.6 10^3/ul (0.3-0.9) Eosinophils # 0.2 10^3/ul (0.0-0.5) Basophils # 0.0 10^3/ul (0.0-0.1) Nucleated Red Blood Cells 0.0 10^3/ul (0.0-0.0) # Prothrombin Time 12.1 Sec (11.9-14.9) Prothrombin Time Ratio 0.9 INR International 0.89 Normalized Ratio Activated 28.1 Sec (23.0-35.0) Partial Thromboplast Time Sodium Level 141 mmol/L (135-144) Potassium Level 4.1 mmol/L (3.5-5.1) Chloride Level 103 mmol/L (97-110) Carbon Dioxide Level 25 mmol/L (21-31) Anion Gap 13 (5-13) Blood Urea Nitrogen 19 mg/dl (7-20) Creatinine 0.93 mg/dl (0.61-1.24) Est Glomerular Filtrat > 60 mL/min (>60) Rate mL/min Glucose Level 105 mg/dl (70-220) Calcium Level 9.7 mg/dl (8.4-10.2) Total Bilirubin 0.7 mg/dl (0.2-1.3) Direct Bilirubin 0.00 mg/dl (0.00-0.20) Indirect Bilirubin 0.7 mg/dl (0-1.1) Aspartate Amino 39 IU/L (15-46) Transf (AST/SGOT) Alanine 41 IU/L (13-69) Aminotransferase (ALT/SGPT ) Alkaline Phosphatase 74 IU/L (42-121) Troponin I < 0.012 < 0.012 ng/ml (0.000-0.120) ng/ml (0.000-0.120) Total Protein 8.6 g/dl (6.1-8.1) Albumin 4.7 g/dl (3.3-4.9) Globulin 3.90 g/dl (1.3-3.2) Albumin/Globulin Ratio 1.20 Free Thyroxine 0.78 ng/dl (0.79-2.35) Creatine Kinase 498 IU/L (23-200) Creatine Kinase Index 0.6 Creatinine Kinase MB 2.76 ng/ml (0.0-2.4) (Mass) DAVID CACERES Jul 30, 2018 12:49
== END 2018-07-30 12:00 | disposition left against medical advice (07) ==
LOC: E/R 01:29 → 6WM 05:56
PROVIDERS: ADMIT Hospitalist; ATTEND Family Medicine
DX: R07.9 Chest pain, unspecified (principal); R42 Dizziness and giddiness; R94.31 Abnormal electrocardiogram [ECG] [EKG]
CPT/HCPCS: 71045; 71275; 80053; 82550; 82553; 84439; 84484; 85025; 85610; 85730; 93005; 93306; 96374; 96375; 99285; G0378; J1644; J2270; J2405; J2765; Q9967